=== PATIENT | female | born 1985 | race Caucasian/White ===

== ENCOUNTER 2017-04-14 10:07 | Outpatient (CLI) | payer OTHER | END 2017-04-14 10:08 | disposition home or self-care (01) | LOC: CTENTCT 10:07 | PROVIDERS: ATTEND Otolaryngology Plastic Surgery within the Head & Neck | DX: J32.9 Chronic sinusitis, unspecified (principal) | CPT/HCPCS: 70486 ==

== ENCOUNTER 2018-04-07 11:16 | Emergency (ER) | payer OTHER, SELFPAY | END 2018-04-07 12:04 | disposition home or self-care (01) | LOC: SCSER 11:16 | DX: J01.90 Acute sinusitis, unspecified (principal); Z71.6 Tobacco abuse counseling; F17.210 Nicotine dependence, cigarettes, uncomplicated; J45.909 Unspecified asthma, uncomplicated | CPT/HCPCS: 99406 ==

== ENCOUNTER 2020-04-07 09:23 | Emergency (ER) | payer OTHER, SELFPAY ==
[2020-04-07 19:12] LABS: SARS-CoV-2 MS2 Positive; SARS-CoV-2 N Gene Negative; SARS-CoV-2 S Gene Negative; SARS-CoV-2 by NAA Not Detected (NotDetected); SARS-CoV-2 orf1ab Negative
== END 2020-04-07 09:44 | disposition home or self-care (01) ==
LOC: ERS 09:23
DX: R50.9 Fever, unspecified (principal); Z20.828 Contact with and (suspected) exposure to other viral communicable diseases; J45.909 Unspecified asthma, uncomplicated; F41.9 Anxiety disorder, unspecified; F17.210 Nicotine dependence, cigarettes, uncomplicated
CPT/HCPCS: 87635; 99283; U0003

== ENCOUNTER 2021-03-18 10:01 | Emergency (ER) | payer SELFPAY ==
[2021-03-18] MEDS ORDERED: Ketorolac Tromethamine 30 MG/ML VIAL ONE (10:25)
[2021-03-18] MEDS ORDERED: Ondansetron ODT 4 MG TAB ONE (10:25)
[2021-03-18] MEDS ORDERED: Acetaminophen 325 MG TAB ONE ×2 (10:25→10:29)
== END 2021-03-18 11:35 | disposition home or self-care (01) ==
LOC: ERS 10:01
DX: U07.1 COVID-19 (principal); J45.909 Unspecified asthma, uncomplicated; F17.210 Nicotine dependence, cigarettes, uncomplicated
CPT/HCPCS: 71045; 93005; 96372; J1885; Q0162

== ENCOUNTER 2023-03-01 06:17 | Emergency (ER) | payer OTHER ==
[2023-03-01 07:38] LABS: SARS-CoV-2 NAA Rapid Test DETECTED (NotDetected)
== END 2023-03-01 07:41 | disposition home or self-care (01) ==
LOC: ERS 06:17
DX: U07.1 COVID-19 (principal)
CPT/HCPCS: 99283